=== PATIENT | male | born 1965 | race Caucasian/White ===

== ENCOUNTER 2025-04-09 12:55 | Observation (INO) ==
--- NOTE | 2025-04-09 12:59 | History & Physical Report ---
Date of Service April 09, 2025 Assessment & Plan (1) Appendicitis: (2) Gout: (3) HLD (hyperlipidemia): Plan Mr. Mcgill is 59 yo gentleman with history of gout, GERD, HLD, ED, and obesity presented to [facility] for 3 days of RLQ and a direct admission the [facility] for acute appendicitis. #Acute appendicitis reported on OP CT repeat labs gen surg consult start zosyn q8h analgesia prn NPO with sips and chips for now until Gen Surg eval trend labs will discuss if new imaging required give patient just received ab ct with con this morning, awaiting transfer of imaging from #HLD continue statin #gout allopurinol 200mg prn not in acute flare #GERD continue ppi PCP Dr Alfaro DVT ppx SCDs for now Admission and Anticipated Discharge Date Admission Date: Time spent evaluating patient, direct bedside care, chart review, placing orders, interpretation of diagnostic studies, discussion with consultants, patient, and family members, as well as other required patient management activi ties is 75minutes. History of Present Illness Chief Complaint: RLQ pain Primary Care Provider: Dario Alfaro MD Mr. Mcgill is 59 yo gentleman with history of gout, GERD, HLD, ED, and obesity presented to [facility] for 3 days of RLQ and a direct admission the [facility] for acute appendicitis. Handoff obtained from [facility], Dr. Purcell who reports vitals are stable, no lab abnormalities, but CT with signs of acute appendicitis. Given no general surgery present at current location, accepted patient for direct admission with plan for abx and NPO prior to transfer. Patient states that he was in his usual state of health until morning when he noted dull umbilical cramping that migrated to RLQ. He noted he was more constipated that usual the last 48 hours, with a looser stool this am. Reports loss of appetite, but no nasuea or vomiting Reports dull ache in RLQ, very tender to deep palpation. Denies any tobacco history, reports etoh on fri/sat up to 4-6 drinks in a sitting, and no illicit use. Lives at home with with no assistive devices or anticipated home needs. On the floor, vitals were notable for BP of 154/85 HR of 60s and O2 sat of mid 90s on room air . Imaging pending transfer from EKG ordered for baseline Consultants: Gen surg Patient to be admitted to med/tele for further evaluation and management of acute appendicitis Allergies Allergy/AdvReac Type Severity Reaction Status Date / Time No Known Allergies Allergy Unverified 05/15/16 14:46 Home Medications Medication Instructions Recorded Confirmed Type ATORVASTATIN (LIPITOR) 40 mg PO HS #0 tabs 05/15/16 04/09/25 History allopurinol 100 mg PO TID 04/09/25 04/09/25 History omeprazole 20 mg capsule,delayed 20 mg PO DAILY 04/09/25 04/09/25 History release Past Med/Surg History Problem List (Updated 04/09/25 @ 15:58 by Simi Irby MD) Appendicitis Medical History (Updated 04/09/25 @ 15:58 by Simi Irby MD) HLD (hyperlipidemia) Gout Social History Smoking Status: Never smoker Hx Alcohol Use: Yes Alcohol type: beer Hx Substance Use: No Preferred Language: Portuguese Communication Ability: Effective Restaurant Recruiter Required: No Beliefs That Will Affect Care: None Current Living Situation: Spouse Other Information That Helps Us Care for You: No Feels Safe at Home: Yes Safety Concerns: Feels Safe At This Time Assistive Devices: Glasses Review of Systems Review of Systems: Constitutional: (-) fever/chills, (-) recent loss of weight, (-) appetite changes, (-) night sweats. Head: (-) headache, (-) dizziness. Eye: (-) blurring of vision, (-) double vision, (-) redness. Ear: (-) hearing loss, (-) discharge, (-) vertigo Nose: (-) discharge, (-) bleeding, (-) congestion, (-) post nasal drip. Throat: (-) sore throat, (-) hoarseness of voice, (-) odynophagia. Cardiovascular: (-) chest pain, (-) palpitations, (-) syncope, (-) orthopnea, (- ) PND, (-) leg swelling. Respiratory: (-) shortness of breath, (-) cough, (-) wheezing, (-) hemoptysis. Neuro: (-) weakness in extremities, (-) numbness, (-) tingling, (-) tremor. Gastrointestinal: (++) belly pain, (-) belly distension, (+) nausea, (-) vomiting, (-) diarrhea, (+) constipation Genitourinary: (-) hematuria, (-) dysuria, (-) polyuria, (-) hesitancy, (-) frequency, (-) urinary incontinence. Musculoskeletal: (-) myalgia, (-) arthralgia. Skin: (-) rashes. Endocrine: (-) heat/cold intolerance. Psychiatry: (-) depression, (-) hallucination. Physical Exam Physical Exam: GENERAL APPEARANCE: AxOx4, generally well-appearing M, no acute distress. HEENT: NC, AT. MMM. EOMI, clear conjunctiva, oropharynx clear. NECK: Supple without lymphadenopathy. No stiffness or restricted ROM. HEART: Normal rate and regular rhythm, normal S1/S1, no m/r/g LUNGS: CTAB, moving air well. No crackles or wheezes are heard. ABDOMEN: soft, protuberant, TTP with guarding in RLQ BACK: No CVAT, no obvious deformity. EXTREMITIES: Without cyanosis, clubbing or edema. NEUROLOGICAL: Grossly nonfocal. Alert and oriented, moving all 4 extremities. CN not formally tested but appear grossly intact. Observed to ambulate with normal gait. Skin: Warm and dry without any rash. Cardiovascular: RRR, no murmur, no edema Gastrointestinal (Abdomen): normal bowel sounds, soft, nontender, no hepatosplenomegaly Results & Data Results & Data Vital Signs (Past 12 Hours) Vital Signs - 24 hr 04/09/25 15:07 04/09/25 15:34 Temperature 36.9 C Temperature Source Oral Pulse Rate [Right Finger] 65 Respiratory Rate 16 Respiratory Effort / Characteristics Non-Labored Spontaneous Non-Labored Spontaneous Respiratory Depth Normal Normal Respiratory Pattern Regular Blood Pressure [Right Arm] 154/84 H Blood Pressure Mean [Right Arm] 107 Blood Pressure Position [Right Arm] Lying Pulse Oximetry 93 Oxygen Delivery Method Room Air Room Air Laboratory Results Short CBC 04/09/25 Range/Units 15:41 WBC 10.09 (4.8-10.8) K/ul Hgb 14.0 (14.0-18.0) g/dl Hct 40.0 L (42.0-52.0) % Plt Count 229 (130-400) K/uL BMP 04/09/25 15:41 Sodium 137 Potassium 3.9 Chloride 104 Carbon Dioxide 25 BUN 12 Creatinine 0.94 Glucose 98 Calcium 9.0 Liver Function 04/09/25 Range/Units 15:41 Total Bilirubin 0.8 (0.2-1.0) mg/dl Direct Bilirubin 0.2 (0-0.2) mg/dl AST 19 (13-39) U/L ALT 25 (7-52) U/L Alkaline Phosphatase 80 (34-104) U/L Albumin 4.2 (3.4-5.0) gm/dl Medications Administered Home Medications Medication Instructions Recorded Confirmed Last Taken ATORVASTATIN (LIPITOR) 40 mg PO HS #0 tabs 05/15/16 04/09/25 Unknown allopurinol 100 mg PO TID 04/09/25 04/09/25 Unknown omeprazole 20 mg capsule,delayed 20 mg PO DAILY 04/09/25 04/09/25 Unknown release
[2025-04-09] MEDS: Patient's HEIGHT &/or WEIGHT Needed STA (15:34)
[2025-04-09 16:00] LABS: Hematocrit (blood only) 40.0 % (42.0-52.0); Hemoglobin 14.0 g/dl (14.0-18.0); Immature Granulocytes # (auto) 0.05 K/uL (0.01-0.20); Immature Granulocytes % (auto) 0.5 %; Mean Corpuscular Hemoglobin 31.3 pg (25.0-34.0); Mean Corpuscular Volume 89.5 fL (80.0-100.0); Platelet Count 229 K/uL (130-400); RDW Standard Deviation 44.0 fL (36.4-46.3); Red Blood Count 4.47 M/uL (4.70-6.10); White Blood Count 10.09 K/ul (4.8-10.8)
[2025-04-09 16:09] LABS: INR 0.9 (0.9-1.1); Partial Thromboplastin Time 29 Seconds (21-31); Prothrombin Time 10.3 Seconds (9.0-12.0)
[2025-04-09 16:24] LABS: Alanine Aminotransferase 25.0 U/L (7-52); Alkaline Phosphatase 80.0 U/L (34-104); Anion Gap 8.0 (3-11); Bilirubin,Total 0.8 mg/dl (0.2-1.0); Blood Urea Nitrogen 12.0 mg/dl (6-23); Calcium 9.0 mg/dl (8.6-10.3); Carbon Dioxide 25.0 mmol/L (21-32); Chloride 104.0 mmol/L (98-107); Creatinine Clr Calc Pharmacy 103.3 ml/min; Glucose 98.0 mg/dl (70-99(Fasting)); Magnesium 1.9 mg/dl (1.7-2.4); Potassium 3.9 mmol/L (3.5-5.1); Sodium 137.0 mmol/L (136-145); Total Protein 7.2 gm/dl (6.0-8.3)
[2025-04-09] MEDS: SODIUM CHLORIDE 0.9% 1,000 ML IV SCH (16:49)
[2025-04-09] MEDS: ACETAMINOPHEN 1,000 MG/100 ML VIAL IV PRN (20:06)
[2025-04-09] MEDS: ONDANSETRON INJ 2 MG/ML 2 ML VIAL IV PRN (20:06)
[2025-04-09] MEDS: PIPERACILLIN/TAZOBACTAM 4.5 GM/100 ML BAG IV SCH (22:32)
[2025-04-10 06:33] LABS: Hematocrit (blood only) 40.9 % (42.0-52.0); Hemoglobin 13.3 g/dl (14.0-18.0); Mean Corpuscular Hemoglobin 30.0 pg (25.0-34.0); Mean Corpuscular Volume 92.3 fL (80.0-100.0); Platelet Count 225 K/uL (130-400); RDW Standard Deviation 45.9 fL (36.4-46.3); Red Blood Count 4.43 M/uL (4.70-6.10); White Blood Count 12.10 K/ul (4.8-10.8)
--- NOTE | 2025-04-10 07:10 | Hospitalist Progress Note ---
Date of Service April 10, 2025 Assessment & Plan (1) Appendicitis: (2) Gout: (3) HLD (hyperlipidemia): Plan Mr. Mcgill is 59 yo gentleman with history of gout, GERD, HLD, ED, and obesity presented to [facility] for 3 days of RLQ and a direct admission the [facility] for acute appendicitis. Acute appendicitis symptoms have been occurring x 3 days Patient initially presented to [facility] CTAP performed there and imaging transferred here Mild leukocytosis increased from admission 10.09-12.10 IV Zosyn started in ED; continue NPO pending OR; last p.o. intake 04/08 at 1900 ECG NSR without prolonged QTc Preop chest x-ray revealed possible atelectasis Analgesia as needed Otherwise labs unremarkable Denies H/O AMI/CVA or ill affects from anesthesia RCRI for preop risk 0 points 0.5% risk of major cardiac event intraoperatively General Surgery consult; plan for OR today for likely appendectomy Saw patient postop @ 1400; doing well; having some incisional pain. AAOx4; saturaing well; on 2LNC. Some abdominal distension, advised this will resolve with flatulence, etc HLD takes atorvastatin; continue last lipid panel 03/14/2025; TG 308, HDL 51, LDL 124 diet modifications encouraged Gout: Takes allopurinol 200mg prn; continue not in acute flare GERD takes omeprazole; continue Disposition: PCP: Dr. Alfaro VTE prophylaxis: Teds and SCDs for now: CODE STATUS full code I spent a total of 59 minutes coordinating, documenting, and providing care for this patient excluding time spent inthe performance of separately billed services or time spent by another provider/QHP. Admission and Anticipated Discharge Date Admission Date: April 09, 2025 Supervising Physician Co-Signing Physician Notes Attending addendum: The patient was seen and examined in medical telemetry unit in presence of the He is status post laparoscopic appendectomy and has been complaining of minimal pain in the abdomen without any nausea and/or vomiting Denies any other significant symptoms except anorexia On examination Lying in bed with moderate distress due to abdominal discomfort and pain Remains hemodynamically stable and is afebrile Chestclear to auscultate bilaterally HeartS1-S2, regular Abdomendistended, tender with bowel sounds sluggish CNSalert, awake oriented x 3 His admission labs, imaging studies and medications reviewed Status post laparoscopic appendectomy for appendicitis Remains medically stable Agree with assessment and plan as outlined above by RENEE Borrego and take the full responsibility of care in the hospital DR Yong Watts Pt sitting upright in his hospital bed in no apparent distress. C/O RLQ pain that has been present x 3 days with nausea and conspitation. Denies COLLINS, dizziness, chest pain, SOB Last ate Friday night 1899. No H/O AMI/CVA. Has only had anesthesia for colonoscopy. Saw patient postop; see below See A/P for further details. Review of Systems Review of Systems: Neuro: (-) Falls, trauma, slurred speech HEENT: (-) COLLINS, dizziness, dysphagia, visual or auditory changes CV: (-) CP, palpitations, swelling Resp: (-) SOB GI: (-) appetite changes, (+) RLQ abdominal pain (+) nausea, (+) constipation : (-) urinary changes Skin: (-) rashes Psych: (-) anxiety, depression Physical Exam Physical Exam: Neuro: AAOx4, PERRLA, no aphagia, memory changes, CNII-XII grossly intact HEENT: head normocephalic, moist mucus membranes CV: S1/S2, (-) M/G/R, (-) edema, cap refill < 3 seconds Resp: Lungs CTA in all mott. On RA GI: Abdomen tender RLQ with radiation to LLQ. (+) psoas sign. soft and non distended. Had (+) constipation and intermittent nausea. (-) CVA tenderness Musculoskeletal: 5/5 B/L UE strength, 5/5 B/L LE strength. No gait disturbance Skin: (-) rashes , (-) erythema. Psych: euthymic mood Results & Data Results & Data Vital Signs (Past 12 Hours) Vital Signs Temp Pulse Pulse Resp BP Pulse Ox O2 Del Method 04/10/25 04:00 36.5 C 60 18 127/60 94 Room Air 04/09/25 22:56 36.7 C 62 18 131/69 94 Room Air 04/09/25 21:51 62 04/09/25 19:45 36.8 C 67 18 142/88 H 93 Room Air 04/09/25 19:32 Room Air Laboratory Results Short CBC 04/09/25 04/10/25 Range/Units 15:41 05:33 WBC 10.09 12.10 H (4.8-10.8) K/ul Hgb 14.0 13.3 L (14.0-18.0) g/dl Hct 40.0 L 40.9 L (42.0-52.0) % Plt Count 229 225 (130-400) K/uL BMP 04/09/25 04/10/25 15:41 05:33 Sodium 137 138 Potassium 3.9 4.0 Chloride 104 104 Carbon Dioxide 25 26 BUN 12 13 Creatinine 0.94 1.04 Glucose 98 101 H Calcium 9.0 8.7 Liver Function 04/09/25 04/10/25 Range/Units 15:41 05:33 Total Bilirubin 0.8 0.8 (0.2-1.0) mg/dl Direct Bilirubin 0.2 (0-0.2) mg/dl AST 19 18 (13-39) U/L ALT 25 23 (7-52) U/L Alkaline Phosphatase 80 75 (34-104) U/L Albumin 4.2 4.0 (3.4-5.0) gm/dl Diagnostic Findings Chest X-Ray 04/10/25 08:17 Clinical History: Preoperative examination Technique: A frontal view of the chest was obtained Findings: There are no confluent pulmonary infiltrates. The heart size is within normal limits. No pleural effusion or pneumothorax is seen. There is mild bilateral lung base atelectasis No fracture is noted. No foreign body is seen Impression: Mild bilateral lung base atelectasis Electronically signed by Preet Jaimes 04-10-2025 08:55 AM
[2025-04-10 07:12] LABS: Alanine Aminotransferase 23.0 U/L (7-52); Albumin Globulin Ratio 1.3 (0.9-2); Alkaline Phosphatase 75.0 U/L (34-104); Anion Gap 8.0 (3-11); Bilirubin,Total 0.8 mg/dl (0.2-1.0); Blood Urea Nitrogen 13.0 mg/dl (6-23); Calcium 8.7 mg/dl (8.6-10.3); Carbon Dioxide 26.0 mmol/L (21-32); Chloride 104.0 mmol/L (98-107); Creatinine Clr Calc Pharmacy 93.2 ml/min; Globulin 3.0 gm/dl (2.5-4.0); Glucose 101.0 mg/dl (70-99(Fasting)); Magnesium 2.0 mg/dl (1.7-2.4); Potassium 4.0 mmol/L (3.5-5.1); Sodium 138.0 mmol/L (136-145); Total Protein 7.0 gm/dl (6.0-8.3)
--- NOTE | 2025-04-10 08:15 | Surgery Consultation ---
Date of Consultation April 10, 2025 Assessment & Plan (1) Appendicitis: con't pain and tenderness on abx will diag laparoscopy and likely appendectomy History of Present Illness Attending Physician: Rajendra Christianson MD History of Present Illness This is a 59-year-old male who presented to [facility] with 3 days of right- sided abdominal pain. He underwent a workup in which an outpatient CT was read as appendicitis. He had a normal white count no fevers no chills. He was anorexic. He was transferred for surgical evaluation. Will put him on a trial of antibiotics. Allergies Allergy/AdvReac Type Severity Reaction Status Date / Time No Known Allergies Allergy Unverified 05/15/16 14:46 Home Medications Medication Instructions Recorded Confirmed Type ATORVASTATIN (LIPITOR) 40 mg PO HS #0 tabs 05/15/16 04/09/25 History allopurinol 100 mg PO TID 04/09/25 04/09/25 History omeprazole 20 mg capsule,delayed 20 mg PO DAILY 04/09/25 04/09/25 History release Patient History Medical History (Updated 04/09/25 @ 15:58 by Simi Irby MD) HLD (hyperlipidemia) Gout Social History Smoking Status: Never smoker Hx Alcohol Use: Yes Alcohol type: beer Hx Substance Use: No Preferred Language: Palauan Communication Ability: Effective Department Manager Required: No Beliefs That Will Affect Care: None Current Living Situation: Spouse Other Information That Helps Us Care for You: No Feels Safe at Home: Yes Safety Concerns: Feels Safe At This Time Assistive Devices: Glasses Review of Systems Constitutional: no fever and no chills Eyes: no problem reported Ear, Nose, Mouth, Throat: no problem reported Respiratory: no cough and no dyspnea Cardiovascular: no chest pain Gastrointestinal: + abdominal pain and + nausea; no vomiti ng and no change in bowel habits Genitourinary: no dysuria Musculoskeletal: no back pain Integumentary: no problem reported Neurologic: no localized weakness and no generalized weakness Psychiatric: no behavioral changes Hematologic / Lymphatic: no easy bleeding and no easy bruising Physical Exam Constitutional: WD/WN, vitals as above Eyes: no scleral abnormality ENMT: external ear and nose normal, oropharynx normal Neck: trachea midline Respiratory: normal respiratory effort, lungs clear to auscultation Cardiovascular: RRR, no murmur, no edema Gastrointestinal (Abdomen): Inspection/Auscultation: abdomen normal to inspection and normal bowel sounds; abdomen not distended and no abdominal surgical scar Percussion/Palpation: + abdomen tender, + guarding and abdomen soft; abdomen not rigid Musculoskeletal: Head/Neck/Chest: normocephalic and head atraumatic Skin: no rashes, warm and dry Results & Data Vital Signs (Past 12 Hours) Vital Signs Temp Pulse Pulse Resp BP BP Pulse Ox 04/10/25 07:44 36.4 C L 64 18 146/80 H 92 04/10/25 04:00 36.5 C 60 18 127/60 94 04/09/25 22:56 36.7 C 62 18 131/69 94 04/09/25 21:51 62 O2 Del Method 04/10/25 07:44 Room Air 04/10/25 04:00 Room Air 04/09/25 22:56 Room Air 04/09/25 21:51
--- NOTE | 2025-04-10 08:56 | XRay Report ---
Clinical History: Preoperative examination Technique: A frontal view of the chest was obtained Findings: There are no confluent pulmonary infiltrates. The heart size is within normal limits. No pleural effusion or pneumothorax is seen. There is mild bilateral lung base atelectasis No fracture is noted. No foreign body is seen Impression: Mild bilateral lung base atelectasis Electronically signed by Preet Jaimes 04-10-2025 08:55 AM
[2025-04-10] MEDS ORDERED: LIDOCAINE 2% 2 ML VIAL/AMP(20MG/ML) INFIL ONE (09:00)
[2025-04-10] MEDS ORDERED: ROCURONIUM BROMIDE 10 MG/ML 5 ML VIAL IV ONE (09:00)
[2025-04-10] MEDS ORDERED: MIDAZOLAM HCL 1 MG/ML 2ML VIAL ONE (09:00)
[2025-04-10] MEDS ORDERED: DEXAMETHASONE SOD INJ 4 MG/ML VIAL ONE (09:00)
[2025-04-10] MEDS ORDERED: PROPOFOL IV EMULSION 10 MG/ML 20 ML VIAL IV ONE (09:00)
[2025-04-10] MEDS ORDERED: ONDANSETRON INJ 2 MG/ML 2 ML VIAL ONE (09:00)
[2025-04-10] MEDS ORDERED: LARYING-O-JET KIT (LTA) ONE (09:00)
--- NOTE | 2025-04-10 09:11 | Anesthesiology Consultation ---
Date of Service April 10, 2025 Assessment & Plan (1) Encounter for pre-operative examination: Chart Review Chart Review: Acceptable Risk for Surgery History Surgery Operation Date: 04/10/25 09:45 Proposed Procedures p Laparoscopic Appendectomy - Jc Ballard MD Height/Weight Height: 5 ft 8 in Weight: 110.1 kg Allergies Allergy/AdvReac Type Severity Reaction Status Date / Time No Known Allergies Allergy Unverified 05/15/16 14:46 Medications Home Medications Medication Instructions Recorded Confirmed Last Taken ATORVASTATIN (LIPITOR) 40 mg PO HS #0 tabs 05/15/16 04/10/25 Unknown allopurinol 100 mg PO TID 04/09/25 04/10/25 Unknown omeprazole 20 mg capsule,delayed 20 mg PO DAILY 04/09/25 04/10/25 Unknown release Active Medications Generic Name Dose Route Start Last Admin Trade Name Freq PRN Reason Stop Dose Admin Piperacillin Sod/Tazobactam Sod 4.5 gm in 100 mls @ 25 mls/hr 04/09/25 22:00 04/10/25 05:58 Zosyn IV 04/19/25 21:59 25 mls/hr Q8H PAZ Administration Protocol Sodium Chloride 1,000 mls @ 80 mls/hr 04/09/25 16:15 04/10/25 04:39 Nss IV 04/12/25 16:14 80 mls/hr .[id number] PAZ Administration Acetaminophen 1,000 mg in 100 mls @ 400 mls/hr 04/09/25 19:38 04/10/25 09:05 Ofirmev IV 04/12/25 19:37 Infused Q8H PRN Infusion Pain or Fever Ondansetron HCl 4 mg 04/09/25 19:38 04/09/25 20:06 Ondansetron Inj 2 Mg/Ml 2 Ml Vial IV 05/09/25 19:37 4 mg Q6H PRN Administration Nausea And Vomiting Past Medical History Medical History (Updated 04/10/25 @ 09:11 by Bubba Ornelas MD) HLD (hyperlipidemia) Gout Past Surgical History Surgical History (Updated 04/10/25 @ 09:10 by Bubba Ornelas MD) No pertinent past surgical history Social History Smoking Status: Never smoker Hx Alcohol Use: Yes Alcohol type: beer alcohol intake frequency: a few times a week Hx Substance Use: No Physical Exam Vital Signs Last Vital Signs Temp 36.4 C L 04/10/25 07:44 Pulse 64 04/10/25 07:44 Resp 18 04/10/25 07:44 BP 146/80 H 04/10/25 07:44 Pulse Ox 92 04/10/25 07:44 O2 Del Method Room Air 04/10/25 07:44 Testing Laboratory Results 04/10/25 05:33 04/10/25 05:33 PT 10.3 Seconds (9.0-12.0) 04/09/25 15:41 INR 0.9 (0.9-1.1) 04/09/25 15:41 APTT 29 Seconds (21-31) 04/09/25 15:41 Electrocardiogram Date: 04/09/25 Findings: + NSR @ (63) Chest X-Ray Date: 04/10/25 Findings: + atelectasis (mild)
[2025-04-10] MEDS ORDERED: PROMETHAZINE HCL 6.25 MG in SODIUM CHLORIDE 0.9% 50 ML IV PRN (10:59)
[2025-04-10] MEDS ORDERED: KETOROLAC 30 MG/ML VIAL IV PRN (10:59)
[2025-04-10] MEDS ORDERED: ATROPINE SULFATE 0.1 MG/ML 10ML SYR IV PRN (10:59)
[2025-04-10] MEDS ORDERED: LABETALOL HCL IV 5 MG/ML 20ML IV PRN (10:59)
[2025-04-10] MEDS ORDERED: SUGAMMADEX SODIUM 200 MG/2 ML VIAL IV ONE ×2 (11:30→12:09)
[2025-04-10] MEDS ORDERED: KETOROLAC 30 MG/ML VIAL ONE (11:33)
[2025-04-10] MEDS: BUPIVACAINE/EPINEPHRINE 0.5% MPF 1:200,000 30 ML VIAL ONE (11:57)
--- NOTE | 2025-04-10 12:22 | Operative Report ---
Post Operative Report Pre & Post Diagnosis Operation Date: 04/10/25 09:45 Pre-Op Diagnosis: acute appendicitis Post-Op Diagnosis: acute appendicitis with RLQ phlegmon I identified the patient and participated in the time-out.: Yes Procedure Operation Date: 04/10/25 09:45 Actual Procedures p Laparoscopic appendectomy with portion of distal cecum(Not Applicable) - Jc Ballard MD Surgeon Jc Ballard MD Restaurant Team Member none Estimated Blood Loss 25 Findings Consistent with Post-Op Diagnosis Specimens appendix and distal cecum Drains none Anesthesia Type General Complications none Disposition Accompanied Patient To Recovery: No Disposition: Recovery Room Indications This is a 80-bzmg-mef-year-old male who was seen at [facility] and had w orkup for abdominal pain. He had a CT scan which was not available read as appendicitis. He was admitted placed on IV antibiotics and failed a trial with continued discomfort. We therefore will take him for diagnostic lap and laparoscopic appendectomy. He understands all the risks in detail. Description of Procedure The patient was taken to the OR and underwent excellent general anesthesia. Their abdomen was prepped and draped in normal sterile fashion. A transverse supraumbilical incision was made, towel clamps were used to create tension on the abdominal wall as an 11 port was placed in the supraumbilical position, inserted with visualization gently into the peritoneal cavity. Good pneumoperitoneum was achieved to about 15 mmHg pressure. Once this was done, a visualized 12 mm left lower quadrant port , a 5mm suprapubic port , and a 5mm right upper quadrant port were all placed in normal fashion. Patient was then placed in head down and rolled to the left. A good diagnostic lap was performed. Appendix was not immediately visualized. Therefore the right colon was mobilized and retrocecally there was a appendiceal phlegmon encountered. This was traced back up to the tenia where the base of the appendix was. A window was created and an Endo OSCAR was to transect a portion of the distal cecum and the appendix. A endobag was then inserted through the left lower quadrant port and the appendix was placed into the bag, The bag was removed through the left lower quadrant port. The appendix was sent for pathologic ev aluation. The pneumoperitoneum was re-established after the 12 mm port was replaced. Saline was then used to irrigate the abdomen. A clip was placed on a mesenteric bleeder. There was then no active bleeding nor any other abnormalities noted in the abdomen. The patient was then placed back in neutral position, the ports were removed and the pneumoperitoneum decompressed. The 12mm port fascia was then closed using a 0 Vicryl. The skin was then anesthetized with 0.5% Marcaine with epinephrine local. Interrupted Vicryl is used to close the skin. Dermabond was used to reinforce the incisions. Sterile dressings were applied. The patient tolerated procedure without complications was sent to the postop recovery period of observation. They will be sent to the floor for the rest of their care. I attest to the content of the Intraoperative Record and any orders documented therein. Any exceptions are noted below.
[2025-04-10] MEDS ORDERED: MoRPHine SULFATE 4 MG/ML 1 ML CARP\\VIAL IV PRN (12:44)
--- NOTE | 2025-04-10 12:48 | Anesthesiology Progress Note ---
Date of Service April 10, 2025 Anesthesia Post Procedure Vital Signs Vital Signs: Temp Pulse Pulse Pulse Resp BP BP 04/10/25 12:35 68 16 144/66 H 04/10/25 12:25 82 21 145/75 H 04/10/25 12:18 36 C L 74 15 146/73 H 04/10/25 10:00 04/10/25 07:44 36.4 C L 64 18 146/80 H 04/10/25 05:49 61 04/10/25 04:00 36.5 C 60 18 127/60 04/09/25 22:56 36.7 C 62 18 131/69 04/09/25 21:51 62 04/09/25 19:45 36.8 C 67 18 142/88 H 04/09/25 19:32 04/09/25 15:34 04/09/25 15:07 36.9 C 65 16 154/84 H Pulse Ox O2 Del Method O2 Flow Rate 04/10/25 12:35 94 Oxymask 6 04/10/25 12:25 96 Oxymask 8 04/10/25 12:18 94 Oxymask 8 04/10/25 10:00 Room Air 04/10/25 07:44 92 Room Air 04/10/25 05:49 04/10/25 04:00 94 Room Air 04/09/25 22:56 94 Room Air 04/09/25 21:51 04/09/25 19:45 93 Room Air 04/09/25 19:32 Room Air 04/09/25 15:34 Room Air 04/09/25 15:07 93 Room Air Pain Intensity Right Lower Abdomen: Pain Intensity: 3 Transfer of Care Handoff Completed per policy Notes Mental Status: alert / awake / arousable Patient Amnestic to Procedure: Yes Nausea / Vomiting: adequately controlled Pain: adequately controlled Airway Patency, RR, SpO2: stable & adequate BP & HR: stable & adequate Hydration State: stable & adequate Anesthetic Complications: no major complications apparent
[2025-04-10] MEDS: MoRPHine SULFATE 2 MG/ML CARP IV PRN (13:42)
[2025-04-10] MEDS ORDERED: Nursing to Pharmacy Communication SCH (14:15)
--- NOTE | 2025-04-10 16:38 | Electrocardiogram Report ---
Test Reason : Blood Pressure : */* mmHG Vent. Rate : 63 BPM Atrial Rate : 63 BPM P-R Int : 154 ms QRS Dur : 88 ms QT Int : 408 ms P-R-T Axes : -3 21 76 degrees QTcB Int : 417 ms Normal sinus rhythm Normal ECG No previous ECGs available Confirmed by Greg Wasserman ([id number]) on 04/10/2025 4:38:25 PM Referred By: Simi Irby Confirmed By: Greg Wasserman
[2025-04-10] MEDS: ATORVASTATIN 40 MG TAB PO SCH (20:29)
--- NOTE | 2025-04-11 10:48 | Hospitalist Progress Note ---
Date of Service April 11, 2025 Assessment & Plan (1) Appendicitis: (2) Gout: (3) HLD (hyperlipidemia): Plan Mr. Mcgill is 59 yo gentleman with history of gout, GERD, HLD, ED, and obesity presented to [facility] for 3 days of RLQ and a direct admission the [facility] for acute appendicitis. Acute appendicitis Patient initially presented to [facility] CTAP performed there and imaging transferred here Mild leukocytosis increased from admission 10.09-12.10 IV Zosyn started in ED; continue POD#1 s/p lap appendectomy complicated by RLQ phlegmon by Dr. Ballard Continue IV Zosyn Diet advanced to regular for lunch PRN analgesics HLD Takes atorvastatin; continue Last lipid panel 03/14/2025; TG 308, HDL 51, LDL 124 Diet modifications encouraged Gout: Takes allopurinol 200mg prn; continue Not in acute flare GERD Takes omeprazole; continue Disposition: VTE prophylaxis: Teds and SCDs for now PCP: Dr. Alfaro CODE: FULL Dispo: Admitted to med/surg Patient seen in collaboration with Dr. Christianson. I spent a total of 50 minutes coordinating, documenting, and providing care for this patient excluding time spent in the performance of separately billed services or time spent by another provider/QHP. Admission and Anticipated Discharge Date Admission Date: April 09, 2025 Supervising Physician Co-Signing Physician Notes Attending addendum: The patient was seen and examined in medical telemetry unit in presence of the He is status post laparoscopic appendectomy and has been complaining of minimal pain in the abdomen without any nausea and/or vomiting Denies any other significant symptoms except anorexia On examination Lying in bed with moderate distress due to abdominal discomfort and pain Remains hemodynamically stable and is afebrile Chestclear to auscultate bilaterally HeartS1-S2, regular Abdomendistended, tender with bowel sounds sluggish CNSalert, awake oriented x 3 His admission labs, imaging studies and medications reviewed Status post laparoscopic appendectomy for appendicitis Remains medically stable Agree with assessment and plan as outlined above by RENEE Borrego and take the full responsibility of care in the hospital DR Yong Christianson 04/10/2025 The patient was seen and examined in medical telemetry He has been complaining of abdominal pain and some distention Has been tolerating clears and passing gas Denies any significant pain On examination Sitting on a chair without any acute distress Hemodynamically stable and is afebrile Abdomen distended, soft, tender with positive bowel sounds His labs and medications reviewed Status post appendectomy and tolerating clears orally Agree with assessment and plan as outlined above by Stacey Gnogora PA-C and take the full responsibility of care in the hospital DR Yong Christianson Subjective Seen and examined in 286-2. Feeling better today; abd pain improved, passing flatus. Tolerating clears for breakfast. No post-op bowel movement. No F/C, lightheadedness, CP, SOB, N/V, dysuria. Review of Systems Review of Systems: At least ten systems reviewed and negative except as noted in the HPI. Physical Exam Physical Exam: Gen: WD/WN, NAD, sitting in bedside chair, A&Ox3 HEENT: Normocephalic, atraumatic, mucous membranes moist Lung: Clear to Auscultation bilaterally Heart: Regular rate, regular rhythm Abdomen: Soft, mild distension, TTP RLQ and LLQ, incisions c/d/i, +BS Extremities: no edema Skin: Warm, no rash Results & Data Results & Data Vital Signs (Past 12 Hours) Vital Signs Temp Pulse Pulse Pulse Resp BP BP 04/11/25 10:25 04/11/25 08:24 36.6 C 70 18 113/66 04/11/25 07:51 68 04/11/25 04:00 36.9 C 76 18 143/82 H 04/11/25 00:00 36.5 C 73 18 134/73 Pulse Ox O2 Del Method O2 Flow Rate 04/11/25 10:25 Room Air 04/11/25 08:24 92 Nasal Cannula 2 04/11/25 07:51 04/11/25 04:00 91 Nasal Cannula 1 04/11/25 00:00 92 Nasal Cannula 3 Diagnostic Findings Chest X-Ray 04/10/25 08:17 Clinical History: Preoperative examination Technique: A frontal view of the chest was obtained Findings: There are no confluent pulmonary infiltrates. The heart size is within normal limits. No pleural effusion or pneumothorax is seen. There is mild bilateral lung base atelectasis No fracture is noted. No foreign body is seen Impression: Mild bilateral lung base atelectasis Electronically signed by Preet Jaimes 04-10-2025 08:55 AM
--- NOTE | 2025-04-11 12:20 | Surgery Progress Note ---
Date of Service April 11, 2025 Assessment & Plan (1) Appendicitis: Plan: complicated with phlegmon con't IV abx encourage po and ambulating Admission and Anticipated Discharge Date Admission Date: April 09, 2025 Subjective still with pain eating OK ambulating minimally Review of Systems Constitutional: no fever and no chills Respiratory: no dyspnea Cardiovascular: no chest pain Gastrointestinal: + abdominal pain; no nausea, no vomiting and no change in bowel habits Neurologic: no localized weakness Psychiatric: no behavioral changes Physical Exam Constitutional: WD/WN, vitals as above Respiratory: normal respiratory effort Cardiovascular: Rate/Rhythm: regular rate and regular rhythm Gastrointestinal (Abdomen): Inspection/Auscultation: + abdomen distended Percussion/Palpation: + abdomen tender and abdomen soft; no guarding and abdomen not rigid Musculoskeletal: Head/Neck/Chest: normocephalic and head atraumatic Results & Data Vital Signs (Past 12 Hours) Vital Signs Temp Pulse Pulse Pulse Resp BP BP 04/11/25 11:28 37.2 C 75 18 136/76 04/11/25 10:25 04/11/25 08:24 36.6 C 70 18 113/66 04/11/25 07:51 68 04/11/25 04:00 36.9 C 76 18 143/82 H Pulse Ox O2 Del Method O2 Flow Rate 04/11/25 11:28 95 Room Air 04/11/25 10:25 Room Air 04/11/25 08:24 92 Nasal Cannula 2 04/11/25 07:51 04/11/25 04:00 91 Nasal Cannula 1
--- NOTE | 2025-04-12 08:22 | Surgery Progress Note ---
Date of Service April 12, 2025 Assessment & Plan (1) Appendicitis: Plan: phlegmon and severe inflammation slow progress con't IV abx ambulate Admission and Anticipated Discharge Date Admission Date: April 09, 2025 Subjective feels a little better this AM god BM febrile last night Review of Systems Constitutional: + fever; no chills and no anorexia Respiratory: no dyspnea Cardiovascular: no chest pain Gastrointestinal: + abdominal pain; no nausea, no vomiting and no change in bowel habits Neurologic: no localized weakness Psychiatric: no behavioral changes Physical Exam Constitutional: WD/WN, vitals as above Eyes: no scleral abnormality Respiratory: normal respiratory effort Cardiovascular: Rate/Rhythm: regular rate and regular rhythm Gastrointestinal (Abdomen): Inspection/Auscultation: abdomen normal to inspection and + abdomen distended Percussion/Palpation: + abdomen tender and abdomen soft; no guarding and abdomen not rigid Musculoskeletal: Head/Neck/Chest: normocephalic and head atraumatic Skin: no rashes, warm and dry Results & Data Vital Signs (Past 12 Hours) Vital Signs Temp Pulse Pulse Resp BP Pulse Ox O2 Del Method 04/12/25 08:14 38.2 C H 91 H 18 133/73 93 Nasal Cannula 04/12/25 07:19 110 H 04/12/25 04:15 36.8 C 92 H 18 157/84 H 91 Nasal Cannula 04/12/25 00:00 36.7 C 73 18 126/77 92 Nasal Cannula 04/11/25 23:57 91 H O2 Flow Rate 04/12/25 08:14 1 04/12/25 07:19 04/12/25 04:15 1 04/12/25 00:00 2 04/11/25 23:57
--- NOTE | 2025-04-12 09:12 | XRay Report ---
XR chest 1V portable CLINICAL HISTORY: o2 requirement COMPARISON STUDY: 04/10/2025 FINDINGS: Stable mild cardiomegaly without pulmonary vascular congestion. Inspiration is shallow. The re is increased stranding opacity in the lung bases. No pleural effusion or pneumothorax. IMPRESSION: Atelectasis versus pneumonia in the lung bases. ACT 112: Negative or not required by law. Electronically signed by: Maverick Schmidt M.D. 04/12/2025 9:10 AM
--- NOTE | 2025-04-12 10:02 | Hospitalist Progress Note ---
Date of Service April 12, 2025 Assessment & Plan (1) Appendicitis: (2) Gout: (3) HLD (hyperlipidemia): Plan Mr. Mcgill is 59 yo gentleman with history of gout, GERD, HLD, ED, and obesity presented to [facility] for 3 days of RLQ and a direct admission the [facility] for acute appendicitis. Acute appendicitis Patient initially presented to [facility] CTAP performed there and imaging transferred here Mild leukocytosis increased from admission 10 -> 12k IV Zosyn started in ED; continue POD#2 s/p lap appendectomy complicated by RLQ phlegmon by Dr. Ballard Gen surg recommending continued IV abx, ambulation Tachycardic and febrile today - will repeat CT abd/pelvis this afternoon Continue IV Zosyn Advance diet as tolerated PRN analgesics Post-op hypoxia Requiring 1-2L NC post op, atelectasis visible on pre-op CXR Has been using incentive spirometry hourly while awake - encouraged to continue Repeat CXR today shows atelectasis versus pneumonia in the lung bases - continue Zosyn as above Nocturnal pulse ox study tonight HLD Takes atorvastatin; continue Last lipid panel 03/14/2025; TG 308, HDL 51, LDL 124 Diet modifications encouraged Gout Takes allopurinol 200mg prn; continue Not in acute flare GERD Takes omeprazole; continue Disposition: VTE prophylaxis: SCDs PCP: Dr. Alfaro CODE: FULL Dispo: Admitted to med/surg Patient seen in collaboration with Dr. Jenkins. I spent a total of 50 minutes coordinating, documenting, and providing care for this patient excluding time spent in the performance of separately billed services or time spent by another provider/QHP. Admission and Anticipated Discharge Date Admission Date: April 09, 2025 Supervising Physician Co-Signing Physician Notes Patient is seen and examined at bedside. States having minimal abdominal discomfort, febrile this morning. CT abdomen showed mild inflammation and small amount of scattered free fluid in the right lower quadrant postoperative nature. No clear abscess or bowel obstruction. Nausea improved. Had bowel movement today. On exam patient is obese, no apparent distress, normocephalic atraumatic, EOMI, normal breath sounds, clear to auscultation, S1-S2, no murmur, trace pedal edema, abdomen distended, nontender, normal bowel sounds, alert, awake, oriented, grossly nonfocal deficits. Acute appendicitis S/P appendectomy. Continue IV Zosyn while hospitalized. Transition to oral antibiotics on discharge. Advance diet as tolerated. Surgery following. Postop hypoxia. Needs 3 L with activity on 2 step. Advised sleep study as outpatient. Will obtain nocturnal oximetry study. I personally interviewed and examined the patient at bedside. I have reviewed the advanced practitioner's documentation on the date of service referred in note and agree with plan. Patient's care is coordinated with Stacey Gongora PA-C. Please refer to the documentation above for details of patient's presentation and for discussion of other issues. I spent a total of26 minutes coordinating, documenting, and providing care for this patient excluding time spent in the performance of separately billed services or time spent by another provider/QHP. Subjective Seen and examined in 284-2. Febrile this AM, RN just gave tylenol. Pain and nausea improved this AM, had a bowel movement. Did not tolerate regular diet for dinner last night so resumed clears. Still requiring O2. Did ambulate in the le this AM on room air and pulse ox revealed hypoxia of 85%. States he is having pain with deep inspiration but continues to use incentive spirometry every hour while awake. No CP, SOB, dysuria. Review of Systems Review of Systems: At least ten systems reviewed and negative except as noted in the HPI. Physical Exam Physical Exam: Gen: WD/WN, NAD, sitting in bedside chair, A&Ox3, appears ill HEENT: Normocephalic, atraumatic, mucous membranes moist Lung: Clear to Auscultation bilaterally, bibasilar crackles Heart: Regular rate, regular rhythm Abdomen: Soft, mild distension, TTP RLQ and LLQ, incisions c/d/i, +BS Extremities: no edema Skin: Warm, no rash Results & Data Results & Data Vital Signs (Past 12 Hours) Vital Signs Temp Pulse Pulse Resp BP Pulse Ox O2 Del Method 04/12/25 08:53 Nasal Cannula 04/12/25 08:14 38.2 C H 91 H 18 133/73 93 Nasal Cannula 04/12/25 07:19 110 H 04/12/25 04:15 36.8 C 92 H 18 157/84 H 91 Nasal Cannula 04/12/25 00:00 36.7 C 73 18 126/77 92 Nasal Cannula 04/11/25 23:57 91 H O2 Flow Rate 04/12/25 08:53 1 04/12/25 08:14 1 04/12/25 07:19 04/12/25 04:15 1 04/12/25 00:00 2 04/11/25 23:57 Diagnostic Findings Chest X-Ray 04/10/25 08:17 Clinical History: Preoperative examination Technique: A frontal view of the chest was obtained Findings: There are no confluent pulmonary infiltrates. The heart size is within normal limits. No pleural effusion or pneumothorax is seen. There is mild bilateral lung base atelectasis No fracture is noted. No foreign body is seen Impression: Mild bilateral lung base atelectasis Electronically signed by Preet Jaimes 04-10-2025 08:55 AM Chest X-Ray 04/12/25 07:42 XR chest 1V portable CLINICAL HISTORY: o2 requirement COMPARISON STUDY: 04/10/2025 FINDINGS: Stable mild cardiomegaly without pulmonary vascular congestion. Inspiration is shallow. There is increased stranding opacity in the lung bases. No pleural effusion or pneumothorax. IMPRESSION: Atelectasis versus pneumonia in the lung bases. ACT 112: Negative or not required by law. Electronically signed by: Maverick Schmidt M.D. 04/12/2025 9:10 AM
[2025-04-12 12:06] LABS: Hematocrit (blood only) 36.0 % (42.0-52.0); Hemoglobin 11.9 g/dl (14.0-18.0); Mean Corpuscular Hemoglobin 30.1 pg (25.0-34.0); Mean Corpuscular Volume 91.1 fL (80.0-100.0); Platelet Count 214 K/uL (130-400); RDW Standard Deviation 45.9 fL (36.4-46.3); Red Blood Count 3.95 M/uL (4.70-6.10); White Blood Count 10.69 K/ul (4.8-10.8)
[2025-04-12 12:22] LABS: Anion Gap 5.0 (3-11); Blood Urea Nitrogen 11.0 mg/dl (6-23); Calcium 8.3 mg/dl (8.6-10.3); Carbon Dioxide 28.0 mmol/L (21-32); Chloride 102.0 mmol/L (98-107); Creatinine Clr Calc Pharmacy 98.5 ml/min; Glucose 119.0 mg/dl (70-99(Fasting)); Potassium 3.5 mmol/L (3.5-5.1); Sodium 135.0 mmol/L (136-145)
[2025-04-12] MEDS: OPTIRAY 320 100ml IV ONE (13:51)
--- NOTE | 2025-04-12 14:13 | CT Scan Report ---
ABDOMEN AND PELVIS CT WITH IV CONTRAST CT DOSE: 1685.52 mGy.cm HISTORY: abd pain, tachy and fever TECHNIQUE: Multiaxial CT images of the abdomen and pelvis were performed following the IV administrat ion of 90 cc of Optiray, A dose lowering technique was utilized adhering to the principles of ALARA. COMPARISON STUDY: 04/09/2025 FINDINGS: There is interval band like consolidation with air bronchograms at the lung bases, right gr eater than left, pneumonia versus atelectasis. ABDOMEN: There is mild fatty liver. Otherwise the liver, gallbladder, spleen, pancreas, and adrenal g lands are unremarkable. Kidneys show no hydronephrosis or calculi. There are moderate atherosclerotic calcifications. No abdominal aortic uterus. Pelvis: Prostate is mildly enlarged. Urinary bladder is nondistended. There is interval appendectomy. There is mild inflammation at the right lower quadrant and a small amount of scattered free fluid at the right lower quadrant with largest fluid collection measuring 3 x 2 cm. There is a small calcific ation at the right lower quadrant. No other bowel inflammation or obstruction seen. Osseous structures: No acute osseous findings. IMPRESSION: 1. Pneumonia versus atelectasis in the lung bases. 2. Recent appendectomy with mild inflammation and small amount of scattered free fluid at the right l ower quadrant which could be postoperative in nature. No abscess otherwise. No free air or bowel obst ruction. 3. If clinical symptoms do not improve, follow-up CT scan would be suggested to reevaluate and make s ure that drainable abscess has not developed. ACT 112: Negative or not required by law. The above report was generated using voice recognition software. It may contain grammatical, syntax o r spelling errors. Electronically signed by: Maverick Schmidt M.D. 04/12/2025 2:12 PM
[2025-04-13 07:12] VITALS: RESP 18
[2025-04-13 07:22] LABS: Hematocrit (blood only) 32.5 % (42.0-52.0); Hemoglobin 11.1 g/dl (14.0-18.0); Mean Corpuscular Hemoglobin 31.1 pg (25.0-34.0); Mean Corpuscular Volume 91.0 fL (80.0-100.0); Platelet Count 254 K/uL (130-400); RDW Standard Deviation 45.3 fL (36.4-46.3); Red Blood Count 3.57 M/uL (4.70-6.10); White Blood Count 12.05 K/ul (4.8-10.8)
--- NOTE | 2025-04-13 07:35 | Surgery Progress Note ---
Date of Service April 13, 2025 Assessment & Plan (1) Appendicitis: Plan: discarge per medical team would put on augmentin 7 days F/U i my clinic two weeks Present on Admission?: Yes Admission and Anticipated Discharge Date Admission Date: April 09, 2025 Subjective requiring O2 pain improved taking po CT scan shows post op changes; pneumonia Review of Systems Constitutional: no fever and no chills Respiratory: + dyspnea Cardiovascular: no chest pain Gastrointestinal: + abdominal pain; no nausea, no vomiting and no change in bowel habits Neurologic: no localized weakness Psychiatric: no behavioral changes Physical Exam Eyes: + scleral abnormality Respiratory: normal respiratory effort Cardiovascular: Rate/Rhythm: regular rate and regular rhythm Gastrointestinal (Abdomen): Inspection/Auscultation: abdomen normal to inspection; abdomen not distended Percussion/Palpation: + abdomen tender and abdomen soft; no guarding and abdomen not rigid Musculoskeletal: Head/Neck/Chest: normocephalic and head atraumatic Results & Data Vital Signs (Past 12 Hours) Vital Signs Temp Pulse Pulse Pulse Pulse Resp BP 04/13/25 07:11 37.3 C 69 18 132/82 04/13/25 03:53 37.5 C 80 16 04/13/25 03:06 04/13/25 03:05 04/13/25 03:04 04/13/25 01:00 73 04/12/25 23:14 79 04/12/25 22:57 36.7 C 69 18 04/12/25 22:51 BP Pulse Ox Pulse Ox O2 Del Method O2 Del Method O2 Flow Rate O2 Flow Rate 04/13/25 07:11 95 Nasal Cannula 3 04/13/25 03:53 143/84 H 92 Nasal Cannula 2 04/13/25 03:06 92 Nasal Cannula 2 04/13/25 03:05 86 L Nasal Cannula 2 04/13/25 03:04 77 L Room Air 04/13/25 01:00 04/12/25 23:14 91 Room Air 04/12/25 22:57 149/89 H 95 Nasal Cannula 1 04/12/25 22:51 Nasal Cannula 1
[2025-04-13 07:36] LABS: Anion Gap 7.0 (3-11); Blood Urea Nitrogen 10.0 mg/dl (6-23); Calcium 8.5 mg/dl (8.6-10.3); Carbon Dioxide 28.0 mmol/L (21-32); Chloride 99.0 mmol/L (98-107); Creatinine Clr Calc Pharmacy 114.2 ml/min; Glucose 113.0 mg/dl (70-99(Fasting)); Potassium 3.5 mmol/L (3.5-5.1); Sodium 134.0 mmol/L (136-145)
[2025-04-13 11:18] VITALS: TEMP 97.7; O2SAT 96
[2025-04-13] MEDS: DOXYCYCLINE HYCLATE 100 MG CAP PO SCH (11:31)
--- NOTE | 2025-04-13 12:53 | Hospitalist Progress Note ---
Date of Service April 13, 2025 Assessment & Plan (1) Appendicitis: (2) Gout: (3) HLD (hyperlipidemia): Plan Mr. Mcgill is 59 yo gentleman with history of gout, GERD, HLD, ED, and obesity presented to [facility] for 3 days of RLQ and a direct admission the [facility] for acute appendicitis. Acute appendicitis Patient initially presented to [facility] CTAP performed there and imaging transferred here S/P s/p lap appendectomy complicated by RLQ phlegmon by Dr. Ballard Continue IV Zosyn while hospitalized>>transition to oral antibiotics to complete the course Advance diet as tolerated Plan to discharge home today Needs follow-up with surgery on discharge Nocturnal hypoxia Possible pneumonia Suspected sleep apnea Empirically on Zosyn Advised sleep study as outpatient 2 step: Needs 3 L with activity Also advised to continue supplemental oxygen at bedtime until sleep study as outpatient HLD Continue atorvastatin Diet modifications encouraged Gout Continue allopurinol GERD Continue PPI PCP: Dr. Alfaro CODE: FULL CODE Dispo: Plan to discharge home today Admission and Anticipated Discharge Date Admission Date: April 09, 2025 Subjective Patient is seen and examined at bedside Abdominal pain much improved Tolerating current diet Still has some cough but otherwise no other complaints Denies any chest pain, dyspnea Plan to be discharged home today Review of Systems Review of Systems: All systems reviewed & are unremarkable except as noted in Subjective Physical Exam Physical Exam: Physical Exam: Vitals signs as noted above General Appearance:Moderately built and nourished, no apparent distress Head: normocephalic, Atraumatic Eyes: normal inspection, EOMI Neck: supple, Trachea midline Respiratory/Chest: Normal breath sounds, basal crackles, No accessory muscle use Cardiovascular: S1, S2, No murmur Abdomen/GI:Soft, mildly distended, mild tender, Bowel sounds present Extremities/Musculoskeletal:normal inspection, no edema Neurologic/Psych:AAOX3, grossly no focal neurological deficits Skin: normal color, warm Results & Data Results & Data Vital Signs (Past 12 Hours) Vital Signs Temp Pulse Pulse Pulse Resp BP BP 04/13/25 11:17 36.5 C 64 18 134/78 04/13/25 07:11 37.3 C 69 18 132/82 04/13/25 03:53 37.5 C 80 16 143/84 H 04/13/25 03:06 04/13/25 03:05 04/13/25 03:04 04/13/25 01:00 73 Pulse Ox Pulse Ox O2 Del Method O2 Del Method O2 Flow Rate O2 Flow Rate 04/13/25 11:17 96 Nasal Cannula 3 04/13/25 07:11 95 Nasal Cannula 3 04/13/25 03:53 92 Nasal Cannula 2 04/13/25 03:06 92 Nasal Cannula 2 04/13/25 03:05 86 L Nasal Cannula 2 04/13/25 03:04 77 L Room Air 04/13/25 01:00 Laboratory Results Short CBC 04/13/25 Range/Units 06:40 WBC 12.05 H (4.8-10.8) K/ul Hgb 11.1 L (14.0-18.0) g/dl Hct 32.5 L (42.0-52.0) % Plt Count 254 (130-400) K/uL BMP 04/13/25 06:40 Sodium 134 L Potassium 3.5 Chloride 99 Carbon Dioxide 28 BUN 10 Creatinine 0.86 Glucose 113 H Calcium 8.5 L
--- NOTE | 2025-04-13 13:07 | Discharge Summary ---
Date of Service April 13, 2025 Admission HPI Per Admitting Provider Mr. Mcgill is 59 yo gentleman with history of gout, GERD, HLD, ED, and obesity presented to [facility] for 3 days of RLQ and a direct admission the [facility] for acute appendicitis. Handoff obtained from Bertin Montoya, Dr. Purcell who reports vitals are stable, no lab abnormalities, but CT with signs of acute appendicitis. Given no general surgery present at current location, accepted patient for direct admission with plan for abx and NPO prior to transfer. Patient states that he was in his usual state of health until morning when he noted dull umbilical cramping that migrated to RLQ. He noted he was more constipated that usual the last 48 hours, with a looser stool this am. Reports loss of appetite, but no nasuea or vomiting Reports dull ache in RLQ, very tender to deep palpation. Denies any tobacco history, reports etoh on fri/sat up to 4-6 drinks in a sitting, and no illicit use. Lives at home with with no assistive devices or anticipated home needs. On the floor, vitals were notable for BP of 154/85 HR of 60s and O2 sat of mid 90s on room air . Imaging pending transfer from EKG ordered for baseline Consultants: Gen surg Patient to be admitted to [facility] for further evaluation and management of acute appendicitis Admission Exam Per Admitting Provider GENERAL APPEARANCE: AxOx4, generally well-appearing M, no acute distress. HEENT: NC, AT. MMM. EOMI, clear conjunctiva, oropharynx clear. NECK: Supple without lymphadenopathy. No stiffness or restricted ROM. HEART: Normal rate and regular rhythm, normal S1/S1, no m/r/g LUNGS: CTAB, moving air well. No crackles or wheezes are heard. ABDOMEN: soft, protuberant, TTP with guarding in RLQ BACK: No CVAT, no obvious deformity. EXTREMITIES: Without cyanosis, clubbing or edema. NEUROLOGICAL: Grossly nonfocal. Alert and oriented, moving all 4 extremities. CN not formally tested but appear grossly intact. Observed to ambulate with normal gait. Skin: Warm and dry without any rash. Cardiovascular: RRR, no murmur, no edema Gastrointestinal (Abdomen): normal bowel sounds, soft, nontender, no hepatosplenomegaly Principal Diagnosis Acute appendicitis Suspected pneumonia Nocturnal hypoxia Discharge Data Allergies Allergy/AdvReac Type Severity Reaction Status Date / Time No Known Allergies Allergy Unverified 05/15/16 14:46 Consultations 04/09/25 14:29 Consult General Surgery Routine Procedures Performed Operation Date: 04/10/25 09:45 Actual Procedures p Laparoscopic Appendectomy(Not Applicable) - Jc Ballard MD Ordered Studies Laboratory Results WBC 12.05 K/ul (4.8-10.8) H 04/13/25 06:40 RBC 3.57 M/uL (4.70-6.10) L 04/13/25 06:40 Hgb 11.1 g/dl (14.0-18.0) L 04/13/25 06:40 Hct 32.5 % (42.0-52.0) L 04/13/25 06:40 MCV 91.0 fL (80.0-100.0) 04/13/25 06:40 MCH 31.1 pg (25.0-34.0) 04/13/25 06:40 MCHC 34.2 g/dL (32.0-36.0) 04/13/25 06:40 RDW Std Deviation 45.3 fL (36.4-46.3) 04/13/25 06:40 RDW Coeff of Charles 13.5 % (11.5-14.5) 04/13/25 06:40 Plt Count 254 K/uL (130-400) 04/13/25 06:40 MPV 10.4 fL (9.4-12.4) 04/13/25 06:40 Immature Gran % (Auto) 0.5 % 04/09/25 15:41 Neut % (Auto) 67.2 % 04/09/25 15:41 Lymph % (Auto) 21.2 % 04/09/25 15:41 Chase % (Auto) 10.1 % 04/09/25 15:41 Eos % (Auto) 0.7 % 04/09/25 15:41 Baso % (Auto) 0.3 % 04/09/25 15:41 Neut # (Auto) 6.78 K/uL (1.40-6.50) H 04/09/25 15:41 Lymph # (Auto) 2.14 K/uL (1.20-3.40) 04/09/25 15:41 Chase # (Auto) 1.02 K/uL (0.11-0.59) H 04/09/25 15:41 Eos # (Auto) 0.07 K/uL (0.00-0.50) 04/09/25 15:41 Baso # (Auto) 0.03 K/uL (0.00-0.20) 04/09/25 15:41 Immature Gran # (Auto) 0.05 K/uL (0.01-0.20) 04/09/25 15:41 PT 10.3 Seconds (9.0-12.0) 04/09/25 15:41 INR 0.9 (0.9-1.1) 04/09/25 15:41 APTT 29 Seconds (21-31) 04/09/25 15:41 PTT Ratio 1.1 04/09/25 15:41 Sodium 134 mmol/L (136-145) L 04/13/25 06:40 Potassium 3.5 mmol/L (3.5-5.1) 04/13/25 06:40 Chloride 99 mmol/L (98-107) 04/13/25 06:40 Carbon Dioxide 28 mmol/L (21-32) 04/13/25 06:40 Anion Gap 7 (3-11) 04/13/25 06:40 BUN 10 mg/dl (6-23) 04/13/25 06:40 Creatinine 0.86 mg/dl (0.6-1.4) 04/13/25 06:40 Est Cr Clr Drug Dosing 114.2 ml/min 04/13/25 06:40 eGFR 100.37 04/13/25 06:40 BUN/Creatinine Ratio 11.6 (10-20) 04/13/25 06:40 Glucose 113 mg/dl (70-99(Fasting)) H 04/13/25 06:40 POC Glucose 141 mg/dl (70-99) H 04/10/25 13:28 Calcium 8.5 mg/dl (8.6-10.3) L 04/13/25 06:40 Phosphorus 3.0 mg/dl (2.5-4.9) 04/10/25 05:33 Magnesium 2.0 mg/dl (1.7-2.4) 04/10/25 05:33 Total Bilirubin 0.8 mg/dl (0.2-1.0) 04/10/25 05:33 Direct Bilirubin 0.2 mg/dl (0-0.2) 04/09/25 15:41 AST 18 U/L (13-39) 04/10/25 05:33 ALT 23 U/L (7-52) 04/10/25 05:33 Alkaline Phosphatase 75 U/L (34-104) 04/10/25 05:33 C-Reactive Protein 2.93 mg/dl (0-0.5) H 04/09/25 15:41 Total Protein 7.0 gm/dl (6.0-8.3) 04/10/25 05:33 Albumin 4.0 gm/dl (3.4-5.0) 04/10/25 05:33 Globulin 3.0 gm/dl (2.5-4.0) 04/10/25 05:33 Albumin/Globulin Ratio 1.3 (0.9-2) 04/10/25 05:33 Procalcitonin 1.22 ng/ml (0-0.5) H 04/13/25 06:40 Impressions Chest X-Ray 04/12/25 07:42 XR chest 1V portable CLINICAL HISTORY: o2 requirement COMPARISON STUDY: 04/10/2025 FINDINGS: Stable mild cardiomegaly without pulmonary vascular congestion. Inspiration is shallow. There is increased stranding opacity in the lung bases. No pleural effusion or pneumothorax. IMPRESSION: Atelectasis versus pneumonia in the lung bases. ACT 112: Negative or not required by law. Electronically signed by: Maverick Schmidt M.D. 04/12/2025 9:10 AM Abdomen/Pelvis CT 04/12/25 12:[address] WITH IV CONTRAST CT DOSE: 1685.52 mGy.cm HISTORY: abd pain, tachy and fever TECHNIQUE: Multiaxial CT images of the abdomen and pelvis were performed following the IV administration of 90 cc of Optiray, A dose lowering technique was utilized adhering to the principles of ALARA. COMPARISON STUDY: 04/09/2025 FINDINGS: There is interval band like consolidation with air bronchograms at the lung bases, right greater than left, pneumonia versus atelectasis. ABDOMEN: There is mild fatty liver. Otherwise the liver, gallbladder, spleen, pancreas, and adrenal glands are unremarkable. Kidneys show no hydronephrosis or calculi. There are moderate atherosclerotic calcifications. No abdominal aortic uterus. Pelvis: Prostate is mildly enlarged. Urinary bladder is nondistended. There is interval appendectomy. There is mild inflammation at the right lower quadrant and a small amount of scattered free fluid at the right lower quadrant with largest fluid collection measuring 3 x 2 cm. There is a small calcification at the right lower quadrant. No other bowel inflammation or obstruction seen. Osseous structures: No acute osseous findings. IMPRESSION: 1. Pneumonia versus atelectasis in the lung bases. 2. Recent appendectomy with mild inflammation and small amount of scattered free fluid at the right lower quadrant which could be postoperative in nature. No abscess otherwise. No free air or bowel obstruction. 3. If clinical symptoms do not improve, follow-up CT scan would be suggested to reevaluate and make sure that drainable abscess has not developed. ACT 112: Negative or not required by law. The above report was generated using voice recognition software. It may contain grammatical, syntax or spelling errors. Electronically signed by: Maverick Schmidt M.D. 04/12/2025 2:12 PM Hospital Course (1) Appendicitis: (2) Gout: (3) HLD (hyperlipidemia): Plan Mr. Mcgill is 59 yo gentleman with history of gout, GERD, HLD, ED, and obesity presented to [facility] for 3 days of RLQ and a direct admission the [facility] for acute appendicitis. Acute appendicitis Patient initially presented to [facility] CTAP performed there and imaging transferred here S/P s/p lap appendectomy complicated by RLQ phlegmon by Dr. Ballard Continue IV Zosyn while hospitalized>>transition to oral antibiotics to complete the course Advance diet as tolerated Plan to discharge home today Needs follow-up with surgery on discharge Nocturnal hypoxia Possible pneumonia Suspected sleep apnea Empirically on Zosyn Advised sleep study as outpatient 2 step: Needs 3 L with activity Also advised to continue supplemental oxygen at bedtime until sleep study as outpatient HLD Continue atorvastatin Diet modifications encouraged Gout Continue allopurinol GERD Continue PPI PCP: Dr. Alfaro CODE: FULL CODE Dispo: Plan to discharge home today Total Time Total Time Spent Total Time Spent (In Minutes): 47 minutes Discharge Plan Discharge Items Patient Disposition: Home - Self-Care Reason For Visit: ACUTE APPENDICITIS Discharge Diagnosis: Acute appendicitis Suspected pneumonia Nocturnal hypoxia Activity: Per Instructions section Exercise/Sports: Wait until after follow-up appointment Non-emergency contact: Primary Care Provider and Surgeon Call non-emergency contact if: you have any medication questions, your symptoms worsen, your pain is concerning for you, you have a fever, your temperature is above 101.5, your wound has increased redness, your wound has increased drainage and your wound pain has increased Follow-up/Referrals: Dario Alfaro MD [Primary Care Provider] - (Date & Time 04/15/2025 11:00 AM Provider: Dario Alfaro MD [facility] ) Diet: Heart Healthy Add Attending Provider Instructions: Post-Surgical ~Discharge Instructions Activity Recommendations: - Lifting limitation: (<20 pounds for 3-4 weeks), - Exercise/sex/sports limit: (nonstrenuous for 2 weeks), - Driving or machine use limit: (none after 3 days post-op as long as pain free and no longer taking narcotic pain medication), - Shower/bathe limit: (may shower tomorrow, no submerging incisions underwater for 2 weeks, Dermabond will peel off in 1-2 weeks) - Call the surgeon's office with any questions or concerns - ; ex. temperature higher than 101.5 degrees F, excessive bleeding or pain Diet: - Resume previous diet, heart healthy as tolerated. Medications: - Resume previous medications unless instructed otherwise by your surgeon. - May alternate extra strength Tylenol and Ibuprofen as needed for mild to moderate pain - Tylenol 650 mg every 6 hours as needed - Ibuprofen 600 mg every 6 hours as needed, take with food - Percocet 1 every 6 hours, as needed for moderate to severe pain. Narcotics may cause nausea on an empty stomach, please eat before taking pain pills - Recommend daily stool softener (Colace) while taking narcotic pain medication to prevent constipation or straining. Drink plenty of water daily. Follow-up: - If not already scheduled, please call the office to schedule a two week follow-up appointment. Office number Add [employer] Provider Instructions: -- Follow-up with your primary care physician on 04/15/2025 11:00 AM -- Follow-up with your surgeon Dr. Hammond in 2 weeks as recommended -- Complete the antibiotic course Augmentin, doxycycline as prescribed --Continue supplemental oxygen 2 L via nasal cannula at bedtime and 3 L via nasal cannula with activity as recommended -- Get sleep study as outpatient to rule out sleep apnea Seek immediate medical attention if your symptoms reoccur or worsen Please review medication list provided on discharge for any medication changes as instructed. Please call if you have any questions or problems. You can reach a [facility] hospitalist on duty at [facility] 24 hours a day by calling [phone] Pending Studies at Discharge: No Stand-Alone Forms: My [facility], Smoking Cessation Medications and DC Order Prescriptions: New oxycodone-acetaminophen [Percocet] 5-325 mg tablet 1 tab PO Q6H PRN (Reason: pain) Qty: 14 0RF amoxicillin-pot clavulanate [Augmentin] 500-125 mg tablet 1 tab PO BID Qty: 14 0RF doxycycline hyclate 100 mg capsule 100 mg PO BID 7 Days Qty: 14 0RF Continued ATORVASTATIN (LIPITOR) 40 MG tablet 40 mg PO HS Qty: 0 omeprazole 20 mg Capsule,Delayed Release(Dr/Ec) 20 mg PO DAILY allopurinol 100 mg PO TID Discharge Orders: Discharge Order (Routine); Ordered 04/13/25 Ordered By: Jose J Jenkins Admission Data Admit Date/Time: 04/09/25 14:29 Attending Provider: Jose J Jenkins Admit Provider: Simi Irby Primary Care Provider: Dario Alfaro Other Providers: Simi Irby; Jc Ballard
[2025-04-13 17:24] VITALS: BP 143/84; PULSE 80
== END 2025-04-13 18:32 | disposition home or self-care (01) | DRG 397 ==
LOC: SUATTDRO 14:29 → 2N 14:29 → INTOOBSV 14:29 → 2N 04-11 17:07